=== PATIENT | male | born 1985 | race Caucasian/White ===

== ENCOUNTER 2018-04-24 15:42 | Emergency (ER) | payer OTHER ==
[2018-04-24] MEDS: LIDOCAINE 1%/EPI 30 ML INJ INJ (16:09)
[2018-04-24] MEDS: IBUPROFEN 800 MG TAB PO (16:13)
[2018-04-24] MEDS: DIPHTH/TET/ACEL PERTUSS (ADULT) 0.5 ML VIAL IM* (16:16)
[2018-04-24] MEDS ORDERED: LIDOCAINE 1%/EPI (1:100,000) (MDV) 20 ML INJ (17:30)
== END 2018-04-24 16:59 | disposition home or self-care (01) ==
LOC: FTE 16:59
DX: S51.812A Laceration without foreign body of left forearm, initial encounter (principal); S40.022A Contusion of left upper arm, initial encounter; F45.8 Other somatoform disorders; W26.8XXA Contact with other sharp object(s), not elsewhere classified, initial encounter; Y92.9 Unspecified place or not applicable; Z23 Encounter for immunization; Z87.891 Personal history of nicotine dependence
CPT/HCPCS: 12002; 73090; 90471; 90715; 99283-25

== ENCOUNTER → 2018-05-04 | Emergency (ER) | payer OTHER | END | disposition home or self-care (01) | LOC: FTE 15:23 | DX: Z48.02 Encounter for removal of sutures (principal) | CPT/HCPCS: 99281; Z7502 ==